=== PATIENT | male | born 1955 | race Caucasian/White ===

== ENCOUNTER 2023-03-19 12:49 | Day surgery (SDC) | payer MEDICARE, OTHER ==
[2023-03-19] MEDS ORDERED: Sodium Chloride 0.9% 10 ML Syringe FLUSH PRN (13:30)
[2023-03-19] MEDS ORDERED: Propofol 200 MG/20 ML SDV ONE (13:50)
[2023-03-19] MEDS ORDERED: Midazolam 1 MG/ML 2 ML SDV ONE (13:50)
[2023-03-19] MEDS: Lactated Ringers 1,000 ML IV SCH (14:26)
[2023-03-19 16:03] VITALS: BP 123/74; PULSE 60
== END 2023-03-19 15:32 | disposition home or self-care (01) ==
LOC: KA.SDS 12:49
PROVIDERS: ATTEND Family Medicine
DX: Z12.11 Encounter for screening for malignant neoplasm of colon (principal); K63.5 Polyp of colon; K57.30 Diverticulosis of large intestine without perforation or abscess without bleeding; K64.8 Other hemorrhoids; K64.4 Residual hemorrhoidal skin tags; I10 Essential (primary) hypertension; E78.00 Pure hypercholesterolemia, unspecified; E66.9 Obesity, unspecified; Z79.899 Other long term (current) drug therapy
CPT/HCPCS: J2250; J2704; J7120

== ENCOUNTER 2023-06-27 15:26 | Emergency (ER) | payer MEDICARE, OTHER ==
[2023-06-27] MEDS ORDERED: Sodium Chloride 0.9% 10 ML Syringe FLUSH PRN (15:36)
[2023-06-27] MEDS: Ondansetron 4 MG/2 ML SDV IVPUSH ONE (15:45)
[2023-06-27 15:46] LABS: BASOPHILS ABSOLUTE AUTO 0.02 10^3/uL (0.00-0.10); BASOPHILS PERCENT AUTO 0.1 % (0.0-1.0); HEMOGLOBIN 15.7 g/dL (13.0-17.0); IMMATURE GRAN ABSOLUTE AUTO 0.02 10^3/uL (0.00-0.50); IMMATURE GRAN PERCENT AUTO 0.1 % (0.0-5.0); LYMPHOCYTES ABSOLUTE AUTO 0.74 10^3/uL (1.00-4.00); LYMPHOCYTES PERCENT AUTO 5.2 % (20.0-40.0); MEAN CORPUSCULAR HEMOGLOBIN 29.5 pg (27.0-31.0); MEAN CORPUSCULAR HGB CONC 33.4 g/dL (32.0-36.0); MEAN CORPUSCULAR VOLUME 88.3 fL (82.0-92.0); MEAN PLATELET VOLUME 9.1 fL (7.4-10.4); MONOCYTES ABSOLUTE AUTO 0.21 10^3/uL (0.10-0.80); MONOCYTES PERCENT AUTO 1.5 % (2.0-8.0); NEUTROPHILS ABSOLUTE AUTO 13.37 10^3/uL (2.50-7.00); NEUTROPHILS PERCENT AUTO 93.1 % (50.0-70.0); PLATELET COUNT,PLT 204 10^3/uL (150-400); RED BLOOD CELL COUNT 5.32 10^6/uL (4.50-6.00); WHITE BLOOD CELL COUNT,WBC 14.36 10^3/uL (5.00-10.00)
[2023-06-27 16:10] LABS: ALBUMIN 3.88 g/dL (3.40-5.00); ANION GAP 17.7 mmol/L (5-15); BILIRUBIN TOTAL 2.4 mg/dL (0.2-1.0); CALCIUM 8.7 mg/dL (8.7-10.3); CREATININE 1.03 mg/dL (0.51-1.17); EST CRCL DRUG DOSING (CG) 59.71 mL/min; POTASSIUM,K 3.7 mmol/L (3.5-5.1); PROTEIN TOTAL,TP 7.1 g/dL (6.4-8.2)
[2023-06-27 16:46] LABS: CORONAVIRUS COVID-19 NAA NEGATIVE (NEGATIVE); INFLUENZA A NAA NEGATIVE (NEGATIVE); INFLUENZA B NAA NEGATIVE (NEGATIVE); RESPIRATORY SYNCYTIAL VIR NAA POSITIVE (NEGATIVE)
[2023-06-27] MEDS: Iopamidol 755 Mg/ML 100 ML Bottle IV ONE (17:12)
[2023-06-27] MEDS: Sodium Chloride 0.9% 100 ML IV SCH (17:12)
[2023-06-27] MEDS: Sodium Chloride 0.9% 1,000 ML IV ONE (17:47)
[2023-06-27] MEDS: cefTRIAXone 1 GM Vial IVPUSH ONE (18:30)
[2023-06-27 18:41] VITALS: BP 102/71; PULSE 99
== END 2023-06-27 18:49 | disposition home or self-care (01) ==
LOC: KA.ED 15:26
DX: R11.2 Nausea with vomiting, unspecified (principal); B97.4 Respiratory syncytial virus as the cause of diseases classified elsewhere; Z20.822 Contact with and (suspected) exposure to COVID-19; Z79.899 Other long term (current) drug therapy
CPT/HCPCS: 0241U; 71045; 71275; 80053; 82150; 83880; 84484; 85025; 85379; 96361; 96374; 96375; 99284; J0696; J2405; J3490; J7030; Q9967; 93005